=== PATIENT | male | born 1940 | race Caucasian/White ===

== ENCOUNTER → 2018-10-23 | Outpatient (CLI) | payer OTHER ==
--- NOTE | ~2018-10-23 | 2DMMODE ---
[facility] [place] [address] 2 D/M-MODE ECHOCARDIOGRAM Name: JASPREET SUMMERS Room #: REG CL [facility]#: [id number] Admission: 10/23/18 Attend Phys: Romy Parsons MD Discharge: Date of : 36 Date of Service: 10/23/18 1351 Report #: [id number] THIS REPORT FOR: //name// APPROVED REPORT Study performed: 10/23/2018 13:06:08 EXAM: Comprehensive 2D, Doppler, and color-flow Echocardiogram Patient Location: Out-Patient Status: routine BSA: 1.88 HR: 61 bpm BP: 128/68 mmHg Rhythm: Regular Other Information Study Quality: Good Indications Dyspnea on exertion. 2D Dimensions RVDd: 37.59 mm IVSd: 8.84 (7-11mm) LVOT Diam: 21.36 (18-24mm) LVDd: 43.49 mm PWd: 8.71 (7-11mm) Ascending Ao: 32.22 (22-36mm) LVDs: 30.43 (25-40mm) Aortic Root: 32.88 mm Volumes Left Atrial Volume (Systole) Single Plane 4CH: 30.29 mL Single Plane 2CH: 43.92 mL LA ESV Index: 21.00 mL/m2 Aortic Valve AoV Peak Nehemias.: 1.34 m/s AO Peak Gr.: 7.23 mmHg LVOT Max P.96 mmHg LVOT Max V: 1.11 m/s DAMARI Vmax: 2.97 cm2 Mitral Valve E/A Ratio: 1.3 MV Decel. Time: 221.29 ms MV E Max Nehemias.: 0.65 m/s [facility] [address] [place] [address] 2 D/M-MODE ECHOCARDIOGRAM Name: JASPREET SUMMERS Room #: REG [facility]#: [id number] Admission: 10/23/18 Attend Phys: Romy Parsons MD Discharge: Date of : 36 Date of Service: 10/23/18 1351 Report #: [id number] MV A Nehemias.: 0.52 m/s MV PHT: 64.18 ms IVRT: 78.43 ms Pulmonary Vein P Vein S: 0.84 m/s P Vein A: 0.42 m/s P Vein D: 0.50 m/s P Vein A Dur.: 133.8 msec P Vein S/D Ratio: 1.68 Tricuspid Valve TR Peak Nehemias.: 2.69 m/s RAP Estimate: 5.00 mmHg TR Peak Gr.: 29.03 mmHg PA Pressure: 34.00 mmHg Left Ventricle The left ventricle is normal size. There is normal LV segmental wall motion. There is normal left ventricular wall thickness. Left ventricular systolic function is normal. LVEF is 55%. Moderate diastolic dysfunction is present (pseudonormal filling). Right Ventricle The right ventricle is normal size. The right ventricular systolic function is normal. Atria The left atrium size is normal. The right atrium size is normal. Aortic Valve The aortic valve is normal in structure. No aortic regurgitation is present. There is no aortic valvular stenosis. Mitral Valve The mitral valve is normal in structure. There is no mitral valve regurgitation noted. No evidence of mitral valve stenosis. Tricuspid Valve The tricuspid valve is normal in structure. Mild tricuspid regurgitation. Estimated PAP is 35mmHg. Pulmonic Valve The pulmonary valve is normal in structure. Mild pulmonic regurgitation. Great Vessels The aortic root is normal in size. The ascending aorta is normal in [facility] [address] [place] [address] 2 D/M-MODE ECHOCARDIOGRAM Name: MELINAJASPREET DAMIR Room #: REG CL [facility]#: [id number] Admission: 10/23/18 Attend Phys: Romy Parsons MD Discharge: Date of : 36 Date of Service: 10/23/18 1351 Report #: [id number] size. IVC is normal in size and collapses >50% with inspiration. Pericardium There is no pericardial effusion. <Conclusion> The left ventricle is normal size. There is normal left ventricular wall thickness. Left ventricular systolic function is normal. Moderate diastolic dysfunction is present (pseudonormal filling). The right ventricle is normal size. The left atrium size is normal. The aortic valve is normal in structure. The mitral valve is normal in structure. Mild tricuspid regurgitation. Estimated PAP is 35mmHg. <ELECTRONICALLY SIGNED> By: Praveen Zacarias MD 10/23/18 1351 1351 50 Praveen Zacarias MD /INF
== END ==
LOC: CV 10-19 08:37 → RAD 10-19 13:54 → CV 10-19 15:45
DX: I37.1 Nonrheumatic pulmonary valve insufficiency (principal); I07.1 Rheumatic tricuspid insufficiency; M47.817 Spondylosis without myelopathy or radiculopathy, lumbosacral region; M41.85 Other forms of scoliosis, thoracolumbar region; E78.00 Pure hypercholesterolemia, unspecified; M51.26 Other intervertebral disc displacement, lumbar region

== ENCOUNTER → 2018-11-11 | Outpatient (CLI) | payer OTHER | LOC: MRI 12:15 | DX: M47.816 Spondylosis without myelopathy or radiculopathy, lumbar region (principal); M41.86 Other forms of scoliosis, lumbar region ==